=== PATIENT | male | born 1985 | race Two or more races ===

== ENCOUNTER 2021-10-15 13:55 | Emergency (ER) | payer MEDICAID ==
[~2021-10-15] VITALS: Ht 172.7 cm; Wt 90.9 kg
[2021-10-15 14:14] VITALS: BP 132/92
[2021-10-15 14:31] LABS: CLARITY,URINE SLIGHTLY CLOUDY (Clear); COLOR,URINE YELLOW (Yellow); GLUCOSE, URINE NEGATIVE (Neg); KETONES,URINE TRACE mg/dl (Neg); LEUKOCYTE ESTERASE ,URINE SMALL (Neg); NITRITES, URINE NEGATIVE (Neg); OCCULT BLOOD,URINE MODERATE (Neg); PROTEIN,URINE NEGATIVE (Neg)
[2021-10-15 14:36] LABS: UA COLLECTION TYPE VOIDED
[2021-10-15 14:39] LABS: AMORPHOUS URATES 1+; BACTERIA,URINE FEW /HPF (Neg); MUCUS STRANDS FEW /LPF (Neg); RBC,URINE 20-50 /HPF (0-2); SQUAMOUS EPITHELIAL CELL,UR MANY /LPF (FEW)
[2021-10-15] MEDS ORDERED: CefTRIAXone 1000mg IM Kit (w/lidocaine diluent) IM STA (17:24)
[2021-10-15] MEDS ORDERED: valacyclovir 500mg tablet PO SCH (17:25)
[2021-10-15] MEDS ORDERED: azithromycin 250mg tablet PO ONE (17:25)
[2021-10-15] MEDS ORDERED: VALA100031 PO (17:38)
[2021-10-15] MEDS ORDERED: DOXY-243 PO (17:38)
== END 2021-10-15 18:42 | disposition home or self-care (01) ==
LOC: ER 13:55
DX: A60.01 Herpesviral infection of penis (principal); Z79.899 Other long term (current) drug therapy
CPT/HCPCS: 81001; 87088; 96372; 99283; J0696